=== PATIENT | female | born 1950 | race Caucasian/White ===

== ENCOUNTER 2017-01-03 15:56 | Emergency (ER) | payer MEDICARE, OTHER ==
[2017-01-03 17:48] VITALS: BP 163/83
--- NOTE | 2017-01-03 18:04 | EDM.PDOC ---
ED HPI GENERAL MEDICAL PROBLEM - General Chief Complaint: Chest Pain Stated Complaint: SENT BY ALLIE LEYVA Time Seen by Provider: 01/03/17 16:10 Source of Information: Reports: Patient, Family History Limitations: Reports: No Limitations - History of Present Illness INITIAL COMMENTS - FREE TEXT/NARRATIVE: PT HAS BEEN MORE SOB RECENTLY. sHE HAD SLIGHT CHEST TIGHTNESS TDAY. sHE DID NOT HAVE ANY SIG CHEST PAIN. Onset: Gradual Duration: Day(s):, Other ( INCREASING SOB. ) Location: Reports: Chest, Other (PT HAD SIG FATIQUE) Associated Symptoms: Reports: Shortness of Breath, Other ( CHEST TIGHTNESS. ) left chest Pain Score (Numeric/FACES): 1 - Related Data Allergies Allergy/AdvReac Type Severity Reaction Status Date / Time No Known Allergies Allergy Verified 01/03/17 16:20 Home Meds: Home Meds Diltiazem HCl [Cardizem LA] 120 mg PO DAILY 03/04/13 [History] Montelukast [Singulair] 10 mg PO DAILY 03/04/13 [History] Nitroglycerin [Nitrostat] 0.4 mg SL ASDIRECTED 03/04/13 [History] Simvastatin [Simvastatin] 10 mg PO BEDTIME 03/04/13 [History] buPROPion HCl [Wellbutrin Xl] 450 mg PO DAILY 03/04/13 [History] Aspirin 81 mg PO DAILY 07/01/15 [History] Calcium Carbonate/Vitamin D3 [Calcium 1,000 + D3 Caplet] 1 each PO DAILY [History] Clindamycin Phosphate [Cleocin T 1% Gel] 1 applic TOP BID PRN 07/01/15 [History] Ginkgo Biloba 40 mg PO DAILY 07/01/15 [History] Hydrocodone/Acetaminophen [Hydrocodon-Acetaminophn 10-325] 1 tab PO Q4H PRN [History] Magnesium 250 mg PO DAILY 07/01/15 [History] Multivitamin [Multivitamins] 1 each PO DAILY 07/01/15 [History] Albuterol Sulfate [Proair Hfa] 1 puff IH QID PRN 09/09/15 [History] Cod Liver Oil 1 each PO BID 09/09/15 [History] Triamcinolone Acetonide [Kenalog 0.1% Lotion] 1 applic TOP BID 09/09/15 [History ] Past Medical History HEENT History: Reports: Cataract Cardiovascular History: Reports: Angina, High Cholesterol, Hypertension, Other ( See Below) Other Cardiovascular History: esophageal spasms Respiratory History: Reports: Asthma Gastrointestinal History: Reports: GERD Genitourinary History: Reports: None 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: Musculoskeletal History: Reports: Arthritis Neurological History: Reports: Migraines Psychiatric History: Reports: Depression Endocrine/Metabolic History: Reports: Diabetes, Type II Oncologic (Cancer) History: Reports: Basal Cell Carcinoma Other Oncologic History: Basal cell skin cancer Dermatologic History: Reports: Other (See Below) Other Dermatologic History: basal cell carcinoma - Past Surgical History Respiratory Surgical History: Reports: None GI Surgical History: Reports: Colonoscopy, EGD Female Surgical History: Reports: Section Musculoskeletal Surgical History: Reports: None Dermatological Surgical History: Reports: Skin Biopsy Social & Family History - Family History Cardiac: Reports: CAD, Hypertension, [place] Neurological: Reports: Alzheimers Disease, CVA Endocrine/Metabolic: Reports: Diabetes, type II - Tobacco Use Smoking Status *Q: Current Every Day Smoker Years of Tobacco use: 40 Packs/Tins Daily: 0.2 Used Tobacco, but Quit: No Second Hand Smoke Exposure: No - Alcohol Use Days Per Week of Alcohol Use: 1 Number of Drinks Per Day: 1 Total Drinks Per Week: 1 - Recreational Drug Use Recreational Drug Use: No - Living Situation & Occupation Living situation: Reports: , Other ED ROS GENERAL - Review of Systems Review Of Systems: See Below Constitutional: Reports: No Symptoms, Malaise, Fatigue HEENT: Reports: No Symptoms Respiratory: Reports: Shortness of Breath Cardiovascular: Reports: No Symptoms Endocrine: Reports: No Symptoms GI/Abdominal: Reports: No Symptoms, Other (PT HAS NO HISTORY OF BLACK TARRY STOOLS OR BRIGHT RED BLEEDING. ) : Reports: No Symptoms ED EXAM, GENERAL - Physical Exam Exam: See Below Free Text/Narrative:: PT IS SOB AND IS HAVING MORE DIFFICULTY TOLERATING ACTIVITY. Exam Limited By: No Limitations General Appearance: Alert, Anxious Ears: Normal TMs Nose: Normal Inspection Throat/Mouth: Normal Inspection Head: Atraumatic Neck: Normal Inspection Respiratory/Chest: Decreased Breath Sounds, Rales Cardiovascular: Regular Rate, Rhythm GI/Abdominal: Soft, Non-Tender Rectal (Female) Exam: Deferred Back Exam: Normal Inspection Extremities: Normal Inspection Neurological: Alert, Oriented, Normal Cognition Psychiatric: Normal Affect Course - Vital Signs Last Recorded V/S: Last Vital Signs Temp 36.9 C 01/03/17 16:08 Pulse 98 01/03/17 17:48 Resp 18 01/03/17 17:48 BP 163/83 H 01/03/17 17:48 Pulse Ox 98 01/03/17 17:48 - Orders/Labs/Meds Orders: Active Orders 24 hr Category Date Time Status EKG Documentation Completion [RC] ASDIRECTED Care 01/03/17 16:25 Active Chest 2V [CR] Stat Exams 01/03/17 16:55 Taken FOLATE [FOLIC ACID] [CHEM] Stat Lab 01/03/17 17:30 Received VITAMIN B12 [CHEM] Stat Lab 01/03/17 17:30 Received EKG 12 Lead [EK] Routine Ther 01/03/17 16:25 Ordered Labs: Laboratory Tests 01/03/17 01/03/17 01/03/17 Range/Units 16:35 16:35 16:35 WBC 9.6 (4.5-11.0) K/uL RBC 5.10 (3.30-5.50) M/uL Hgb 10.7 L D (12.0-15.0) g/dL Hct 35.1 L (36.0-48.0) % MCV 69 L (80-98) fL MCH 21 L (27-31) pg MCHC 31 L (32-36) % Plt Count 303 (150-400) K/uL Neut % (Auto) 54 (36-66) % Lymph % (Auto) 31 (24-44) % [place] % (Auto) 12 H (2-6) % Eos % (Auto) 2 (2-4) % Baso % (Auto) 1 (0-1) % Sodium 143 (140-148) mmol/L Potassium 4.0 (3.6-5.2) mmol/L Chloride 107 (100-108) mmol/L Carbon Dioxide 29 (21-32) mmol/L Anion Gap 6.6 (5.0-14.0) mmol/L BUN 12 (7-18) mg/dL Creatinine 1.0 (0.6-1.0) mg/dL Est Cr Clr Drug Dosing 54.54 mL/min Estimated GFR (MDRD) 56 L (>60) Glucose 93 (74-106) mg/dL Calcium 8.8 (8.5-10.1) mg/dL Iron (50-170) ug/dL TIBC (250-450) ug/dl % Saturation (20-55) % Total Bilirubin 0.3 (0.2-1.0) mg/dL AST 16 (15-37) U/L ALT 26 (12-78) U/L Alkaline Phosphatase 95 (46-116) U/L Creatine Kinase 109 (26-192) U/L Troponin I < 0.017 (0.000-0.056) ng/mL C-Reactive Protein (0.0-0.3) mg/dL Crg-[id number] Pept (5-125) pg/mL Total Protein 7.0 (6.4-8.2) g/dL Albumin 3.7 (3.4-5.0) g/dL Globulin 3.3 (2.3-3.5) g/dL Albumin/Globulin Ratio 1.1 L (1.2-2.2) 01/03/17 01/03/17 01/03/17 Range/Units 16:35 17:14 17:30 WBC (4.5-11.0) K/uL RBC (3.30-5.50) M/uL Hgb (12.0-15.0) g/dL Hct (36.0-48.0) % MCV (80-98) fL MCH (27-31) pg MCHC (32-36) % Plt Count (150-400) K/uL Neut % (Auto) (36-66) % Lymph % (Auto) (24-44) % [place] % (Auto) (2-6) % Eos % (Auto) (2-4) % Baso % (Auto) (0-1) % Sodium (140-148) mmol/L Potassium (3.6-5.2) mmol/L Chloride (100-108) mmol/L Carbon Dioxide (21-32) mmol/L Anion Gap (5.0-14.0) mmol/L BUN (7-18) mg/dL Creatinine (0.6-1.0) mg/dL Est Cr Clr Drug Dosing mL/min Estimated GFR (MDRD) (>60) Glucose (74-106) mg/dL Calcium (8.5-10.1) mg/dL Iron 12 L (50-170) ug/dL TIBC 459 H (250-450) ug/dl % Saturation 3 L (20-55) % Total Bilirubin (0.2-1.0) mg/dL AST (15-37) U/L ALT (12-78) U/L Alkaline Phosphatase (46-116) U/L Creatine Kinase (26-192) U/L Troponin I (0.000-0.056) ng/mL C-Reactive Protein 0.23 (0.0-0.3) mg/dL [id number] Pept 147 H (5-125) pg/mL Total Protein (6.4-8.2) g/dL Albumin (3.4-5.0) g/dL Globulin (2.3-3.5) g/dL Albumin/Globulin Ratio (1.2-2.2) - Re-Assessments/Exams Free Text/Narrative Re-Assessment/Exam: 01/03/17 18:04 PT HAD A NORMAL LOOKING CHEST XRAY. hER EKG LOOKED GOOD, HER CARDIAC ENZYMES WERE NORMAL. hER FE LEVEL WAS VERY LOW AND HER HG WAS 10. 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 gET VITAMINS THAT ARE HIGH IN IRON. - My Orders Last 24 Hours: My Active Orders 01/03/17 16:25 EKG Documentation Completion [RC] ASDIRECTED EKG 12 Lead [EK] Routine 01/03/17 16:55 Chest 2V [CR] Stat 01/03/17 17:30 FOLATE [FOLIC ACID] [CHEM] Stat VITAMIN B12 [CHEM] Stat - Assessment/Plan Last 24 Hours: My Active Orders 01/03/17 16:25 EKG Documentation Completion [RC] ASDIRECTED EKG 12 Lead [EK] Routine 01/03/17 16:55 Chest 2V [CR] Stat 01/03/17 17:30 FOLATE [FOLIC ACID] [CHEM] Stat VITAMIN B12 [CHEM] Stat
--- NOTE | 2017-01-04 08:55 | CR ---
Chest 2V HISTORY: No Clinical Info FINDINGS: Heart size within normal limits. Pulmonary vasculature within normal limits. No evidence f or focal consolidation or cardiopulmonary process. IMPRESSION: No radiographic evidence for acute cardiopulmonary process.
== END 2017-01-03 18:27 | disposition home or self-care (01) ==
LOC: JP.ED 15:56
DX: R07.89 Other chest pain (principal); D50.9 Iron deficiency anemia, unspecified; I10 Essential (primary) hypertension; E78.00 Pure hypercholesterolemia, unspecified; J45.909 Unspecified asthma, uncomplicated; F32.9 Major depressive disorder, single episode, unspecified; K21.9 Gastro-esophageal reflux disease without esophagitis; M19.90 Unspecified osteoarthritis, unspecified site; E11.9 Type 2 diabetes mellitus without complications; G43.909 Migraine, unspecified, not intractable, without status migrainosus; F17.210 Nicotine dependence, cigarettes, uncomplicated; Z79.82 Long term (current) use of aspirin; Z79.899 Other long term (current) drug therapy
CPT/HCPCS: 36415; 71020; 71020-26; 80053; 82550; 82607; 82746; 83550; 83880; 84484; 85025; 86140; 93005; 93010; 99284; 99285-25

== ENCOUNTER 2024-06-30 18:36 | Emergency (ER) | payer MEDICARE, OTHER ==
[2024-06-30 19:09] VITALS: BP 179/75; PULSE 61
[2024-06-30] MEDS: Acetaminophen 500 MG Tab PO ONE ×2 (20:14→20:23)
[2024-06-30] MEDS: Acetaminophen 500 MG Tab ONE (20:22)
== END 2024-06-30 21:13 | disposition home or self-care (01) ==
LOC: JP.ED 18:36
DX: S93.402A Sprain of unspecified ligament of left ankle, initial encounter (principal); I10 Essential (primary) hypertension; I25.2 Old myocardial infarction; E78.00 Pure hypercholesterolemia, unspecified; K21.9 Gastro-esophageal reflux disease without esophagitis; I25.10 Atherosclerotic heart disease of native coronary artery without angina pectoris; E11.9 Type 2 diabetes mellitus without complications; Z79.82 Long term (current) use of aspirin; Z79.899 Other long term (current) drug therapy; W10.9XXA Fall (on) (from) unspecified stairs and steps, initial encounter
CPT/HCPCS: 29515; 73610; 99283; A9270